=== PATIENT | male | born 1985 | race Caucasian/White ===

== ENCOUNTER 2019-10-21 01:55 | Emergency (ER) | payer OTHER ==
[~2019-10-21] VITALS: Ht 170.2 cm; Wt 72.6 kg
--- NOTE | 2019-10-21 02:13 | PHYS DOC ---
Past History Past Medical History: Constipation, Sciatica Adult General Chief Complaint Chief Complaint: HIP PAIN.. " My right hip been hurting since Monday.. and I did nothing to it.. and not been feeling well so ... I have not done much...'".. " I just completed a course of doxycycline 100 mg twice day for 10 days.. I just finshed my last pill....that was for a sinus infection... 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 Hip pain, dysuria and malaise. Does have a hx of low white cell counts. Seasonal Sinusitis. There is a family hx. of immunodeficiency deficiency disorders, MS, Rheumatoid, DM, Breast Cancer ect. [place] over [place], last station was [place]. No history of recent trauma. History of recent travel or specific ill contacts. Pain seems to follow right sciatic nerve into right hip and posterior leg. It is no obvious cording in legs. Pulses equal to left leg. Straight leg pain exacerbates pain in right leg and hip and sciatic nerve. Patient recently has had some constipation. No history of problems with urination. No saddle loss. No fever or chills. No history cancer. Review of Systems Review of Systems Constitutional: Denies fever or chills [] Eyes: Denies change in visual acuity, redness, or eye pain [] HENT: Denies nasal congestion or sore throat [] Respiratory: Denies cough or shortness of breath [] Cardiovascular: No additional information not addressed in HPI [] GI: Denies abdominal pain, nausea, vomiting, bloody stools or diarrhea [] : Denies dysuria or hematuria [] Musculoskeletal: Denies back pain or joint pain []complaints of right hip pain Integument: Denies rash or skin lesions [] Neurologic: Denies headache, focal weakness or sensory changes [patient]complains of pain along right sciatic nerve Endocrine: Denies polyuria or polydipsia [] All other systems were reviewed and found to be within normal limits, except as documented in this note. Family History Family History History of immunosuppression disorders in family members Current Medications Current Medications See nursing for home meds Allergies Allergies Allergies Coded Allergies Type Severity Reaction Last Updated Verified Penicillins Allergy Unknown 10/21/19 Yes Physical Exam Physical Exam Constitutional: Well developed, well nourished, no acute distress, non-toxic appearance. [] HENT: Normocephalic, atraumatic, bilateral external ears normal, oropharynx moist, no oral exudates, nose normal. [] Eyes: PERRLA, EOMI, conjunctiva normal, no discharge. [] Neck: Normal range of motion, no tenderness, supple, no stridor. [] Cardiovascular:Heart rate regular rhythm, no murmur [] Lungs & Thorax: Bilateral breath sounds clear to auscultation [] Abdomen: Bowel sounds normal, soft, no tenderness, no masses, no pulsatile masses. [] Skin: Warm, dry, no erythema, no rash. [] Back: No tenderness, no CVA tenderness. [] No midline tenderness. Extremities: No tenderness, no cyanosis, no clubbing, ROM intact, no edema. [] No cording appreciated. Neurologic: Alert and oriented X 3, normal motor function, normal sensory function, no focal deficits noted. []DTRs +2 patella and brachial. Does have increased pain on straight leg lift right leg sciatic nerve. Psychologic: Affect normal, judgement normal, mood normal. [] EKG EKG [] Radiology/Procedures Radiology/Procedures [] IMAGING REPORT Signed PATIENT: JANELL VILLALTA ACCOUNT: [id number] : 1985 LOCATION: ER AGE: 34 SEX: M EXAM STATUS: REG ER ORD. PHYSICIAN: JASIEL VELÁZQUEZ MD REASON: pain, LBP, RIGHT HIP PAIN, X A FEW DAYS, NKI, BUT IS IN . PROCEDURE: CT LUMBAR SPINE WO CONTRAST INDICATION: Hip and back pain COMPARISON: None. TECHNIQUE: Axial CT images obtained through the pelvis and lumbar spine. One or more of the following individualized dose reduction techniques were utilized for this examination: 1. Automated exposure control; 2. Adjustment of the mA and/or kV according to patient size; 3. Use of iterative reconstruction technique. FINDINGS: Lumbar spine: Pars defects at L5. No evidence of acute fracture or dislocation. There is some evidence of degenerative changes with disc protrusions as well as mild facet hypertrophy and mild ligamentum flavum hypertrophy without high-grade central canal or neural foraminal stenosis. There is some suspected mild to moderate narrowing of the neural foramina including at L4-5 and L5-S1. Pelvis: No evidence of acute fracture or dislocation. 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 * No acute fracture of pelvis. Electronically signed by: Jose Armando Lomeli MD (10/21/2019 3:50 AM) [facility] DICTATED AND SIGNED BY: JOSE ARMANDO LOMELI MD DATE: 10/21/19349 CC: JASIEL VELÁZQUEZ MD; PCP,UNKNOWN ~ Course & Med Decision Making Course & Med Decision Making Pertinent Labs and Imaging studies reviewed. (See chart for details) Pt. to follow up with Primary at [place]. Take tylenol and ibuprofen for pain. Vicoprofen up 4 x for marked discomfort. Flexeril 10 up three times a day for spasms. Return if any concerns. [Impression: 1. Sciatica 2. Constipation 3. Elevation of CRP 18.2 4. Recent upper respiratory infection treated with doxycycline 10 days Dragon Disclaimer Dragon Disclaimer This electronic medical record was generated, in whole or in part, using a voice recognition dictation system. Departure Departure: Disposition: 01 HOME/RESIDENCE PRIOR TO ADM Condition: STABLE Referrals: PCP,UNKNOWN (PCP) Scripts Ibuprofen (IBUPROFEN) 800 Mg Tablet 800 MG PO TID PRN for pain, #120 TAB Prov: JASIEL VELÁZQUEZ MD 10/21/19 Acetaminophen (ACETAMINOPHEN) 500 Mg Tablet 1000 MG PO QIDPRN PRN for PAIN, #120 TAB Prov: JASIEL VELÁZQUEZ MD 10/21/19 Cyclobenzaprine Hcl (CYCLOBENZAPRINE HCL) 10 Mg Tablet 10 MG PO tidprn for spasms, #30 TAB Prov: JASIEL VELÁZQUEZ MD 10/21/19 Magnesium Hydroxide (MILK OF MAGNESIA) 2,400 Mg/10 Ml Oral.susp 2400 MG PO DAILY PRN for CONSTIPATION for 90 Days, LIQUID Prov: JASIEL VELÁZQUEZ MD 10/21/19 Hydrocodone/Ibuprofen (HYDROCODONE-IBUPROFEN 7.5-200 ) 1 Each Tablet 1 TAB PO PRN Q6HRS PRN for PAIN, #30 TAB 0 Refills Prov: JASIEL VELÁZQUEZ MD 10/21/19 Dragon Disclaimer This chart was dictated in whole or in part using Voice Recognition software in a busy, high-work load, and often noisy Emergency Department environment. It may contain unintended and wholly unrecognized errors or omissions. JASIEL VELÁZQUEZ MD Oct 21, 2019 02:13
[2019-10-21] MEDS ORDERED: IV RINGERS SOLUTION,LACTATED 1,000 ML IV SCH (02:30)
[2019-10-21] MEDS ORDERED: KETOROLAC 30 MG/ML VIAL. IVP ONE (02:30)
[2019-10-21 02:51] LABS: BASO % 1 % (0-3); EOS # 0.2 x10^3/uL (0.0-0.7); EOS % 5 % (0-3); HEMATOCRIT 45.5 % (39.0-53.0); HEMOGLOBIN 15.3 g/dL (13.0-17.5); LYMPH # 1.6 x10^3/uL (1.0-4.8); LYMPH % 30 % (24-48); MEAN CORPUSCULAR HEMOGLOBIN 30 pg (25-35); MEAN CORPUSCULAR HGB CONC 34 g/dL (31-37); MEAN CORPUSCULAR VOLUME 90 fL (79-100); MONO # 0.5 x10^3/uL (0.0-1.1); MONO % 10 % (0-9); NEUT # 2.8 x10^3uL (1.8-7.7); NEUT % 55 % (31-73); PLATELET COUNT 247 x10^3/uL (140-400); RED BLOOD COUNT 5.07 x10^6/uL (4.30-5.70); RED CELL DISTRIBUTION WIDTH 12.8 % (11.5-14.5); WHITE BLOOD COUNT 5.2 x10^3/uL (4.0-11.0)
[2019-10-21 03:03] LABS: ALBUMIN 3.9 g/dL (3.4-5.0); C REACTIVE PROTEIN 18.2 mg/L (0-3.3); CALCIUM 8.8 mg/dL (8.5-10.1); DIRECT BILIRUBIN 0.1 mg/dL (0.0-0.2); GFR 86.1; MAGNESIUM 1.7 mg/dL (1.8-2.4); POTASSIUM 3.5 mmol/L (3.5-5.1); TOTAL BILIRUBIN 0.3 mg/dL (0.2-1.0); TOTAL PROTEIN 7.5 g/dL (6.4-8.2)
[2019-10-21 03:49] LABS: SEDIMENTATION RATE 4 (0-15)
--- NOTE | 2019-10-21 03:53 | RAD ---
INDICATION: Hip and back pain COMPARISON: None. TECHNIQUE: Axial CT images obtained through the pelvis and lumbar spine. One or more of the following individualized dose reduction techniques were utilized for this examination: 1. Automated exposure control; 2. Adjustment of the mA and/or kV according to patient size; 3. Use of iterative reconstruction technique. FINDINGS: Lumbar spine: Pars defects at L5. No evidence of acute fracture or dislocation. There is some evidence of degenerative changes with disc protrusions as well as mild facet hypertrophy and mild ligamentum flavum hypertrophy without high-grade central canal or neural foraminal stenosis. There is some suspected mild to moderate narrowing of the neural foramina including at L4-5 and L5-S1. Pelvis: No evidence of acute fracture or dislocation. 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 * No acute fracture of pelvis. Electronically signed by: Jose Armando Lomeli MD (10/21/2019 3:50 AM) [facility]
[2019-10-21 03:54] LABS: BACTERIA,URINE 0 /HPF (0-FEW); BILIRUBIN,URINE NEG (NEG); CLARITY,URINE CLEAR; COLOR,URINE YELLOW; GLUCOSE,URINE NEG (NEG); NITRITE,URINE NEG (NEG); RBC,URINE 0 /HPF (0-2); SQUAMOUS EPITHELIAL CELL,UR OCC /LPF; UROBILINOGEN,URINE 0.2 mg/dL (0.2 mg/dL); WBC,URINE RARE /HPF (0-4)
[2019-10-21] MEDS ORDERED: MAGN2400 PO (04:12)
[2019-10-21] MEDS ORDERED: HYDR-1179 PO (04:12)
[2019-10-21] MEDS ORDERED: CYCL-331 PO (04:12)
[2019-10-21] MEDS ORDERED: ACET500T68 PO (04:14)
[2019-10-21] MEDS ORDERED: IBUP800T19 PO (04:14)
[2019-10-21] MEDS ORDERED: MAGNESIUM HYDROXIDE 2,400 MG/30 ML ORAL.SUSP. ONE (04:19)
[2019-10-21] MEDS ORDERED: methylPREDNISolone ACETATE 40 MG/ML VIAL. ONE (04:20)
[2019-10-21] MEDS ORDERED: MAGNESIUM HYDROXIDE 2,400 MG/30 ML ORAL.SUSP. PO ONE (04:30)
[2019-10-21] MEDS ORDERED: methylPREDNISolone ACETATE 40 MG/ML VIAL. IM ONE (04:30)
[2019-10-21 04:55] VITALS: BP 128/79
== END 2019-10-21 05:19 | disposition home or self-care (01) ==
LOC: ER 01:55
DX: M54.31 Sciatica, right side (principal); K59.00 Constipation, unspecified; R79.82 Elevated C-reactive protein (CRP); Z88.0 Allergy status to penicillin
CPT/HCPCS: 36415; 72131; 72192; 80048; 80076; 81001; 82550; 83735; 85025; 85610; 85651; 85730; 86140; 87040; 96372; 96374; 99285; J1030; J1885; J7120